=== PATIENT | female | born 1995 | race Caucasian/White ===

== ENCOUNTER 2017-04-02 23:33 | Emergency (ER) | payer OTHER ==
[~2017-04-02] VITALS: Ht 157.5 cm; Wt 61.3 kg
[2017-04-03 01:14] VITALS: BP 134/79
== END 2017-04-03 01:23 | disposition home or self-care (01) ==
LOC: EXP 23:33 → EME 23:33 → EXP 04-03 01:23
DX: S60.222A Contusion of left hand, initial encounter (principal); W23.0XXA Caught, crushed, jammed, or pinched between moving objects, initial encounter; Y93.E9 Activity, other interior property and clothing maintenance
CPT/HCPCS: 73130; 99281; 99283